=== PATIENT | female | born 1960 | race Caucasian/White ===

== ENCOUNTER → 2016-12-19 | Outpatient (CLI) | payer BC ==
[~2016-12-19] MED LIST: ATOR20TA49 PO; CITA20TA12 PO
--- NOTE | 2016-12-19 13:17 | Diagnostic Imaging Report ---
PROCEDURE: CT abdomen and pelvis without contrast. TECHNIQUE: Multiple contiguous axial images were obtained through the abdomen and pelvis without the use of intravenous contrast. INDICATION: Microhematuria. COMPARISON: None. FINDINGS: Minimal linear atelectasis or scarring in the lung bases. Benign 1.2 cm adrenal adenoma in the left adrenal gland. Mild scattered atherosclerotic calcifications. The liver, gallbladder, pancreas, spleen, right adrenal gland, kidneys, collecting systems, and appendix are negative. No free intraperitoneal air/fluid, lymphadenopathy, or evidence of bowel obstruction. Mild degenerative changes in the spine. IMPRESSION: No acute CT findings in the abdomen or pelvis. No evidence of renal stones in either kidney or ureter. Dictated by: Dictated on workstation # [id number]
== END ==
LOC: RAD 12:46
PROVIDERS: ATTEND Urology
DX: R31.29 Other microscopic hematuria (principal)
CPT/HCPCS: 74176

== ENCOUNTER → 2020-05-03 | Outpatient (CLI) | payer BC ==
--- NOTE | 2020-05-03 18:33 | Diagnostic Imaging Report ---
INDICATION: Routine screening. COMPARISON is made with prior mammogram from 10/18/2015. 2-D and 3-D bilateral screening mammography was performed with CAD. Both breasts are heterogeneously dense, limiting the sensitivity of mammography. A biopsy marker clip in the medial central left breast is again noted. Overall breast parenchymal pattern appears to be stable. No mass or malignant appearing microcalcifications are identified. Axillae are unremarkable. IMPRESSION: BI-RADS Category 2. No mammographic features suspicious for malignancy are identified. ACR BI-RADS Category 2: Benign findings. Result letter will be mailed to the patient. Note: At least 10% of breast cancer is not imaged by mammography. Dictated by: Dictated on workstation # [id number]
== END ==
LOC: RAD 13:47
PROVIDERS: ATTEND Nurse Practitioner Family
DX: Z12.31 Encounter for screening mammogram for malignant neoplasm of breast (principal); Z98.890 Other specified postprocedural states
CPT/HCPCS: 77063; 77067

== ENCOUNTER → 2021-02-08 | Outpatient (CLI) | payer BC ==
[~2021-02-08] MED LIST changes: +RT-ALBUTEROL SULF 2.5 MG/3 ML PRE-MIX VIAL INH ONE
== END ==
LOC: RT 12:26
PROVIDERS: ATTEND Nurse Practitioner Family
DX: R06.00 Dyspnea, unspecified (principal)
CPT/HCPCS: 94060; 94726; 94729

== ENCOUNTER → 2021-03-14 | Outpatient (CLI) | payer BC ==
[~2021-03-14] MED LIST changes: -RT-ALBUTEROL SULF 2.5 MG/3 ML PRE-MIX VIAL INH ONE
--- NOTE | 2021-03-14 17:23 | Diagnostic Imaging Report ---
TIME OF EXAM: 03/14/2021 5:04 p.m. REASON FOR EXAM: Lung cancer screening. 41 pack year smoking history. COMPARISON: None. TECHNIQUE: Low Dose CT helical images obtained through the chest. Sagittal and coronal reformats were obtained and reviewed. Dose reduction techniques were utilized. CTDI vol: 2.22 mGy FINDINGS: Lungs: Lung volumes are normal. No significant emphysema or fibrosis is present. There is no appreciable bronchiectasis. No pulmonary mass or consolidation is present. A nodule is seen in the left lower lobe measuring 1.1 cm. No central endoluminal airway lesion is seen. Heart and Mediastinum: Heart size is within normal limits. Small amount of coronary calcifications are present. Aortic atherosclerosis is present without aneurysm. No pericardial effusion is present. No axillary, supraclavicular, mediastinal, internal mammary, or hilar adenopathy is present by CT size criteria. Normal size and attenuation of the visualized thyroid gland. Pleura: Normal pleural spaces. No effusion or pneumothorax. No pleural nodularity or mass. Abdomen: Included views of the upper abdomen demonstrate no acute abnormality. Bones and soft tissues: Regional skeletal and soft tissue structures are age-appropriate. IMPRESSION: 1. Nodule in the left lower lobe measuring 1.1 cm. Follow-up is recommended in 3 months with low-dose chest CT. Alternatively, PET/CT may be considered to evaluate for hypermetabolic activity. 2. No thoracic lymphadenopathy. Result code: Category 4: Suspicious Follow up: 3 month LDCT Dictated by: Dictated on workstation # [id number]
== END ==
LOC: RAD 16:45
PROVIDERS: ATTEND Nurse Practitioner
DX: Z12.2 Encounter for screening for malignant neoplasm of respiratory organs (principal); R91.1 Solitary pulmonary nodule; F17.210 Nicotine dependence, cigarettes, uncomplicated
CPT/HCPCS: 71271

== ENCOUNTER → 2021-04-11 | Outpatient (CLI) | payer BC ==
--- NOTE | 2021-04-11 15:58 | Diagnostic Imaging Report ---
INDICATION: Left lower lobe pulmonary nodule. TECHNIQUE: The serum blood glucose level at the time of injection was 111 mg/dL. The patient was administered 14.1 mCi of F-18 FDG intravenously and PET imaging was performed from the top of the skull to the mid thighs. A noncontrast CT was also performed for attenuation correction and anatomic correlation. COMPARISON: No prior PET/CT studies are available for comparison. Comparison is made with the screening CT chest study from 03/14/2021. FINDINGS: There is symmetric activity throughout the brain. The soft tissues of the neck are unremarkable. The area of nodularity in the superior segment of the left lower lobe does not demonstrate FDG avidity. No pulmonary parenchymal hypermetabolism is identified. No mediastinal or hilar hypermetabolism is identified. There is physiologic activity throughout the GI and tracts of the abdomen and pelvis. No suspicious hypermetabolism is identified. IMPRESSION: Unremarkable PET/CT study. The nodular density in the left lower lobe on the screening chest CT does not demonstrate FDG avidity. Even so, continued CT chest followup is recommended to show continued stability. Dictated by: Dictated on workstation # [id number]
== END ==
LOC: RAD 11:21
PROVIDERS: ATTEND Nurse Practitioner Family
DX: J98.4 Other disorders of lung (principal); R91.1 Solitary pulmonary nodule; R93.89 Abnormal findings on diagnostic imaging of other specified body structures; F17.200 Nicotine dependence, unspecified, uncomplicated
CPT/HCPCS: 78815; A9552

== ENCOUNTER → 2021-10-05 | Outpatient (CLI) | payer BC ==
--- NOTE | 2021-10-05 16:01 | Diagnostic Imaging Report ---
INDICATION: Routine screening. COMPARISON is made with prior mammograms from 05/03/2020 and 10/18/2015. 2-D and 3-D bilateral screening mammography was performed with CAD. Both breasts are heterogeneously dense, limiting the sensitivity of mammography. A marker clip left breast is again noted. No mass or malignant appearing microcalcifications are seen. Axillae are unremarkable. IMPRESSION: BI-RADS Category 2 No mammographic features suspicious for malignancy are identified. ACR BI-RADS Category 2: Benign findings. Result letter will be mailed to the patient. Note: At least 10% of breast cancer is not imaged by mammography. Dictated by: Dictated on workstation # [id number]
== END ==
LOC: RAD 10:48
PROVIDERS: ATTEND Nurse Practitioner
DX: Z12.31 Encounter for screening mammogram for malignant neoplasm of breast (principal)
CPT/HCPCS: 77063; 77067

== ENCOUNTER → 2021-10-24 | Outpatient (CLI) | payer BC ==
--- NOTE | 2021-10-24 15:41 | Diagnostic Imaging Report ---
EXAMINATION: CT chest without contrast. TECHNIQUE: Multiple contiguous axial images were obtained through the chest without the use of intravenous contrast. All CT scans use one or more of the following dose optimizing techniques: automated exposure control, MA and/or KvP adjustment based on patient size and exam type or iterative reconstruction. HISTORY: Lung nodule. COMPARISON: 03/14/2021. FINDINGS: There is no edema or pneumonia. No pleural effusion. No pneumothorax. There is a stable 6.5 mm average diameter nodule in the left lower lobe. There is mild right middle lobe atelectasis. There is no axillary or supraclavicular lymphadenopathy. There is no mediastinal lymphadenopathy. Heart size is normal. There are severe coronary artery calcifications. No pericardial effusion. Aorta is normal in caliber. Limited views of the upper abdomen are unremarkable. There are no suspicious osseus lesions. IMPRESSION: Stable 6.5 mm average diameter left lower lobe nodule. Patient can return to annual screening. Lung RADS category two. Dictated by: Dictated on workstation # [id number]
== END ==
LOC: RAD 15:15
PROVIDERS: ATTEND Nurse Practitioner Family
DX: R91.1 Solitary pulmonary nodule (principal)
CPT/HCPCS: 71250

== ENCOUNTER 2022-09-12 06:22 | Outpatient (CLI) | payer BC ==
[~2022-09-12] VITALS: Ht 152.4 cm; Wt 74.8 kg
[2022-09-12] MEDS ORDERED: ETAN25VI SQ (15:25)
[2022-09-12] MEDS ORDERED: BUDE10.2 IH (15:25)
[2022-09-12] MEDS ORDERED: CALC600T91 PO (15:25)
[2022-09-12] MEDS ORDERED: VITA1CAP PO (15:25)
[2022-09-12] MEDS ORDERED: CETI10TA17 PO (15:25)
== END 2022-09-12 15:26 | disposition home or self-care (01) ==
LOC: PREOP 06:22
PROVIDERS: ATTEND Surgery
DX: Z01.818 Encounter for other preprocedural examination (principal)

== ENCOUNTER 2022-09-25 09:45 | Day surgery (SDC) | payer BC ==
[~2022-09-25] VITALS: Ht 152 cm; Wt 74.8 kg
[~2022-09-25 09:45] MED LIST changes: +BUDE10.2 IH; +CALC600T91 PO; +CETI10TA17 PO; +ETAN25VI SQ; +VITA1CAP PO
[2022-09-25] MEDS ORDERED: LACTATED RINGERS 1,000 ML IV STA (09:53)
[2022-09-25 10:10] VITALS: BP 123/77
[2022-09-25] MEDS ORDERED: HURRICAINE EXT TUBE (BENZOCAINE) XX PRN (10:15)
[2022-09-25] MEDS ORDERED: PROPOFOL INJECTION 50 ML IV ONE (11:23)
[2022-09-25] MEDS ORDERED: MIDAZOLAM 2 MG/2 ML (VERSED) VIAL ONE (11:24)
[2022-09-25] MEDS ORDERED: GLYCOPYRROLATE 0.2 MG/ML (ROBINUL) 2 ML VIAL ONE (11:48)
[2022-09-25] MEDS ORDERED: LACTATED RINGERS 1,000 ML IV ONE (11:58)
[2022-09-25] MEDS ORDERED: PANT40TA2 PO (12:19)
--- NOTE | 2022-09-25 12:19 | Anesthesia-General Post-Op ---
MAC Patient Condition Mental Status/LOC: Same as Preop Cardiovascular: Satisfactory Nausea/Vomiting: Absent Respiratory: Satisfactory Pain: Controlled Complications: Absent Post Op Complications Complications None Follow Up Care/Instructions Patient Instructions None needed. Anesthesiology Discharge Order Discharge Order Patient is doing well, no complaints, stable vital signs, no apparent adverse anesthesia problems. No complications reported per nursing. MILEY TEIXEIRA CRNA Sep 25, 2022 12:19
[2022-09-25 12:20] VITALS: BP 125/65
--- NOTE | 2022-09-25 12:20 | Discharge Inst-Simple/Standard ---
Discharge Inst-Standard Patient Instructions/Follow Up Plan of Care/Instructions/FU: 2 weeks Donis Activity as Tolerated: Yes Discharge Diet: Regular Diet YAMEL OTOOLE DO Sep 25, 2022 12:19
[2022-09-25 12:30] VITALS: BP 125/65
[2022-09-25 13:26] VITALS: BP 125/65
--- NOTE | 2022-09-25 20:47 | OPERATIVE REPORT ---
DATE OF SERVICE: 09/25/2022 PREOPERATIVE DIAGNOSES: Gastroesophageal reflux disease, altered bowel dysfunction. POSTOPERATIVE DIAGNOSES: Slight gastritis, colon polyps, minimal diverticulosis. PROCEDURE: EGD with biopsies, colonoscopy with hot biopsy polypectomy x6 and snare polypectomy x2. 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 ESTIMATED BLOOD LOSS: None. COMPLICATIONS: None. INDICATIONS: The patient is a 61-year-old female who has had change in bowel function and GERD symptoms. She understands risks and benefits of procedure and wishes to proceed. Consent was signed in the chart. DESCRIPTION OF PROCEDURE: The patient was taken to the endoscopy suite, placed in left lateral recumbent position. Timeout was performed. Scope was inserted in mouth, down the esophagus, stomach and into the duodenum without difficulty. No polyps, masses or ulcerations within the duodenum. Scope was slowly retracted back to stomach where it was further insufflated. Changes may be some chronic gastritis. Biopsy of the antrum and body were obtained. Scope was retroflexed noting a small sliding type hiatal hernia, no other pathology noted. Scope was returned to its normal position, slowly withdrawn to distal esophagus. Biopsy of the GE junction was obtained. Scope was slowly retracted back until completely removed, noting no other pathology. Biopsy of GE junction was obtained before were removed. Digital rectal exam was performed. No palpable polyps, masses or ulcerations. Scope was inserted in the rectum and advanced all the way to cecum with minimal difficulty. Prep was adequate with irrigation and suction. Scope was slowly retracted back. No polyps, masses or ulcerations within the cecum. In the ascending colon, 3 polyps were present, which hot biopsy polypectomies were performed. Scope was then continuously retracted back into the transverse colon where a polyp was present, which snare polypectomy was performed. Scope was then continuously retracted back descending colon where two polyps were present, which hot biopsy polypectomy was performed. Scope was continuously retracted back noting minimal amount of diverticulosis. The patient with polyp, which snare polypectomy was performed. Scope was then continuously retracted back into the rectum where another polyp was present, which hot biopsy polypectomy was performed. Scope was continuously retracted back into the rectum where it was also retroflexed noting no other pathology. Scope was returned to its normal position, slowly withdrawn until completely removed. The patient tolerated procedure well without any complications. She was taken to recovery room in stable condition. RECOMMENDATIONS: I would recommend repeat colonoscopy in 3 years. Any issues before that be seen at that time. Also depending upon pathology results. The patient with sliding hiatal hernia. We will try and get her symptoms under control. If not, would consider further testing to discuss surgical repair. Diverticulosis, would recommend high fiber diet. The patient will follow up in 2 weeks. Any problems before that be seen at that time. Job ID: [id number] DocumentID: [id number] Dictated Date: 09/25/2022 12:23:26 Ehs Specialist Date: 09/25/2022 20:46:50 Dictated By: DO PÉREZ ORELLANA
== END 2022-09-25 13:40 | disposition home or self-care (01) ==
LOC: ENDO 09:45
PROVIDERS: ATTEND Surgery
DX: D12.2 Benign neoplasm of ascending colon (principal); D12.3 Benign neoplasm of transverse colon; D12.5 Benign neoplasm of sigmoid colon; K63.5 Polyp of colon; K62.1 Rectal polyp; K57.30 Diverticulosis of large intestine without perforation or abscess without bleeding; K21.9 Gastro-esophageal reflux disease without esophagitis; K29.70 Gastritis, unspecified, without bleeding; K22.70 Barrett's esophagus without dysplasia; K31.A19 Gastric intestinal metaplasia without dysplasia, unspecified site; F17.290 Nicotine dependence, other tobacco product, uncomplicated; Z87.891 Personal history of nicotine dependence; Z79.899 Other long term (current) drug therapy; E66.9 Obesity, unspecified; Z68.32 Body mass index [BMI] 32.0-32.9, adult
CPT/HCPCS: 88305

== ENCOUNTER 2023-03-18 14:56 | Emergency (ER) | payer BC ==
[~2023-03-18] VITALS: Ht 152.4 cm; Wt 74.8 kg
[~2023-03-18 14:56] MED LIST changes: +PANT40TA2 PO
--- NOTE | 2023-03-18 15:04 | ED Chest Pain ---
General Chief Complaint: Chest Pain Stated Complaint: CHEST PRESSURE Nursing Triage Note: PT TO [facility] BY [facility] FROM [facility] WITH COMPLAINT OF CP. STATES PAIN STARTED AT WORK AND SHE WENT TO [facility]. 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 WAS GIVEN 324 ASA BY [facility] Source: patient, EMS Exam Limitations: no limitations History of Present Illness Date Seen by Provider: Mar 18, 2023 Time Seen by Provider: 14:51 Initial Comments 62-year-old female presents from the [facility] clinic where she was being evaluated for chest pain. She states this morning about 11:00 she had mid central pressure with radiation to her mid back. 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 She sat down to relax and the pain started to subside so she got up again and the pain worsened once again. It was associated with some acute shortness of breath. Symptoms lasted about an hour and subsided. They started to come back slightly when she got to the clinic. EKG at the clinic was reportedly normal. She was given 324 mg of aspirin as well. She denies any recent fevers chills recent surgeries long distance travel, unilateral lower extremity pain or swelling. She has no known cardiac history. Notably she does have rheumatoid arthritis. About a week ago she was started on hydroxychloroquine. She is also on Enbrel. All other systems reviewed and negative except documented per HPI. Voice recognition software was used to help create this chart Allergies and Home Medications Allergies Coded Allergies: Sulfa (Sulfonamide Antibiotics) (Verified Allergy, Intermediate, NAUSEA/VOMITTING, 11/03/15) Patient Home Medication List Home Medication List Reviewed: Yes Atorvastatin Calcium (Lipitor) 20 Mg Tablet, 20 MG PO DAILY, (Reported) Entered as Reported by: MAURI GRANADO on 11/03/15 1124 Budesonide/Formoterol Fumarate (Symbicort 160-4.5 Mcg Inhaler) 160 Mcg-4.5 Mcg/Actuation Hfa.aer.ad, 2 PUFF IH BID, (Reported) Entered as Reported by: AUTUMN GAONA on 09/12/22 1525 Calcium Carbonate (Calcium) 600 Mg Calcium (1500 Mg) Tablet, 600 MG PO DAILY, (Reported) Entered as Reported by: AUTUMN GAONA on 09/12/22 1525 Cetirizine HCl (Cetirizine HCl) 10 Mg Tablet, 10 MG PO DAILY, (Reported) Entered as Reported by: AUTUMN GAONA on 09/12/22 152 Etanercept (EnbreL) 25 Mg/0.5 Ml Vial, 25 MG SQ WEEK, (Reported) Entered as Reported by: AUTUMN GAONA on 09/12/22 152 Pantoprazole Sodium (Protonix) 40 Mg Tablet.dr, 40 MG PO DAILY Prescribed by: YAMEL OTOOLE on 09/25/22 1219 Vitamin B Complex (Vitamin B Complex) 1 Each Capsule, 1 EACH PO DAILY, (Reported) Entered as Reported by: AUTUMN GAONA on 09/12/22 152 Review of Systems Review of Systems Constitutional: see HPI Past Zhepjyd-Vbjoyj-Skadsv Hx Patient Social History Tobacco Use?: No Use of E-Cig and/or Vaping dev: No Substance use?: No Alcohol Use?: No Immunizations Up To Date First/Initial COVID19 Vaccinat: YES Second COVID19 Vaccination Ronaldo: YES Third COVID19 Vaccination Date: YES Seasonal Allergies Seasonal Allergies: No Past Medical History Surgeries: Yes (CYST OFF TAILBONE) Section Respiratory: Yes Asthma Cardiac: No Neurological: No Genitourinary: No Gastrointestinal: No Musculoskeletal: No Endocrine: No HEENT: No Cancer: No Psychosocial: No Integumentary: No Blood Disorders: No Physical Exam Vital Signs Vital Signs - First Documented 03/18/23 14:57 Temp 37.0 Pulse 72 Resp 19 B/P (MAP) 172/96 (121) Pulse Ox 97 O2 Delivery Room Air Capillary Refill : Less Than 3 Seconds Height, Weight, BMI Height: 5'0.00" Weight: 150lbs. oz. 68.997849uw; 32.00 BMI Method: General Appearance: No Apparent Distress, WD/WN HEENT: Normal ENT Inspection, Pharynx Normal Neck: Full Range of Motion, Normal Inspection, Non Tender, Supple Respiratory: Chest Non Tender, Lungs Clear, Normal Breath Sounds, No Accessory Muscle Use, No Respiratory Distress Cardiovascular: Regular Rate, Rhythm, No Murmur, Normal Peripheral Pulses Gastrointestinal: Normal Bowel Sounds, No Organomegaly, No Pulsatile Mass, Non Tender, Soft Extremity: Normal Capillary Refill, Normal Inspection, Non Tender, No Calf Tenderness, No Pedal Edema Neurologic/Psychiatric: Alert, Oriented x3 Skin: Normal Color, Warm/Dry Progress/Results/Core Measures Results/Orders Lab Results Laboratory Tests Test 03/18/23 15:02 Range/Units White Blood Count 9.8 4.3-11.0 10^3/uL Red Blood Count 4.54 3.80-5.11 10^6/uL Hemoglobin 13.1 11.5-16.0 g/dL Hematocrit 39 35-52 % Mean Corpuscular Volume 86 80-99 fL Mean Corpuscular Hemoglobin 29 25-34 pg Mean Corpuscular Hemoglobin Concent 34 32-36 g/dL Red Cell Distribution Width 13.0 10.0-14.5 % Platelet Count 350 130-400 10^3/uL Mean Platelet Volume 8.9 L 9.0-12.2 fL Immature Granulocyte % (Auto) 0 % Neutrophils (%) (Auto) 26 L 42-75 % Lymphocytes (%) (Auto) 60 H 12-44 % Monocytes (%) (Auto) 9 0-12 % Eosinophils (%) (Auto) 3 0-10 % Basophils (%) (Auto) 1 0-10 % Neutrophils # (Auto) 2.6 1.8-7.8 10^3/uL Lymphocytes # (Auto) 5.9 H 1.0-4.0 10^3/uL Monocytes # (Auto) 0.9 0.0-1.0 10^3/uL Eosinophils # (Auto) 0.3 0.0-0.3 10^3/uL Basophils # (Auto) 0.1 0.0-0.1 10^3/uL Immature Granulocyte # (Auto) 0.0 0.0-0.1 10^3/uL Sodium Level 138 135-145 MMOL/L Potassium Level 3.9 3.6-5.0 MMOL/L Chloride Level 106 98-107 MMOL/L Carbon Dioxide Level 23 21-32 MMOL/L Anion Gap 9 5-14 MMOL/L Blood Urea Nitrogen 14 7-18 MG/DL Creatinine 0.83 0.60-1.30 MG/DL Estimat Glomerular Filtration Rate 80 BUN/Creatinine Ratio 17 Glucose Level 88 70-105 MG/DL Calcium Level 9.1 8.5-10.1 MG/DL Corrected Calcium 9.1 8.5-10.1 MG/DL Total Bilirubin 0.4 0.1-1.0 MG/DL Aspartate Amino Transf (AST/SGOT) 14 5-34 U/L Alanine Aminotransferase (ALT/SGPT) 14 0-55 U/L Alkaline Phosphatase 56 40-136 U/L Troponin I < 0.028 <0.028 NG/ML Total Protein 7.3 6.4-8.2 GM/DL Albumin 4.0 3.2-4.5 GM/DL My Orders Orders - EILEEN DEL ROSARIO DO Cbc With Automated Diff (03/18/23 15:01) Chest 1 View, Ap/Pa Only (03/18/23 15:01) Ekg Tracing (03/18/23 15:01) Comprehensive Metabolic Panel (03/18/23 15:01) Monitor-Rhythm Ecg Trace Only (03/18/23 15:01) Ed Iv/Invasive Line Start (03/18/23 15:01) Troponin I Ngoc (03/18/23 15:01) Vital Signs/I&O 03/18/23 14:57 Temp 37.0 Pulse 72 Resp 19 B/P (MAP) 172/96 (121) Pulse Ox 97 O2 Delivery Room Air Blood Pressure Mean: 121 Comment Sinus rhythm at 65 bpm. Normal intervals. Normal axis. Mild ST depression V5 and V6.. No ectopy. Departure Communication (Admissions) Patient remained hemodynamically stable. Her chest pain has subsided while resting here. Her EKG has some mild ST depressions in V5 and V6. No other acute focal abnormalities. Differential diagnosis ACS, pericarditis, pulmonary pathology. Troponin is negative. Heart score is 4. I advised the patient to stay in the hospital for possible stress testing and observation overnight. She is very hesitant to do so. They are waiting on another friend and like to talk to her before making a decision. The patient is strongly leaning towards going home. I impressed upon her that based on the heart score she should stay in the hospital for further testing. She is mostly reluctant due to financial reasons. I have independently reviewed EKG, chest x-ray and labs After significant discussion with her friends the patient decided to leave AGAINST MEDICAL ADVICE. She is given strict return precautions and advised that she can always come back to be seen should her symptoms change in any way concerning to her. She states understanding Impression Primary Impression: Chest pain Qualified Codes: R07.9 - Chest pain, unspecified Disposition: AGAINST MEDICAL ADVICE Condition: Against Medical Advice Departure-Patient Inst. Referrals: [facility] (PCP) Primary Care Physician ANUJ TORRES APRN (Family) Primary Care Physician Patient Instructions: Chest Pain Add. Discharge Instructions: I have offered you admission and you have declined. Of course if your symptoms change in any way concerning to we are happy to see you again. Specifically need to return immediately if you have recurrence of your pain, get clammy or sweaty or have any significant shortness of breath. Follow-up with your primary doctor in the next 48 hours for further evaluation and treatment recommendation. All discharge instructions reviewed with patient and/or family. Voiced understanding. EILEEN DEL ROSARIO DO Mar 18, 2023 15:04
[2023-03-18 15:10] LABS: BASOPHILS # (AUTO) 0.1 10^3/uL (0.0-0.1); BASOPHILS % (AUTO) 1 % (0-10); EOSINOPHILS # (AUTO) 0.3 10^3/uL (0.0-0.3); EOSINOPHILS % (AUTO) 3 % (0-10); HEMATOCRIT 39 % (35-52); HEMOGLOBIN 13.1 g/dL (11.5-16.0); LYMPHOCYTES # (AUTO) 5.9 10^3/uL (1.0-4.0); LYMPHOCYTES % (AUTO) 60 % (12-44); MEAN CORPUSCULAR HEMOGLOBIN 29 pg (25-34); MEAN CORPUSCULAR HGB CONC 34 g/dL (32-36); MEAN CORPUSCULAR VOLUME 86 fL (80-99); MEAN PLATELET VOLUME 8.9 fL (9.0-12.2); MONOCYTES # (AUTO) 0.9 10^3/uL (0.0-1.0); MONOCYTES % (AUTO) 9 % (0-12); NEUTROPHILS # (AUTO) 2.6 10^3/uL (1.8-7.8); NEUTROPHILS % (AUTO) 26 % (42-75); PLATELET COUNT 350 10^3/uL (130-400); WHITE BLOOD COUNT 9.8 10^3/uL (4.3-11.0)
--- NOTE | 2023-03-18 15:20 | Diagnostic Imaging Report ---
CLINICAL INDICATION: Patient with complaints of chest pain. EXAM: Portable chest x-ray, upright view. COMPARISON: CT scan of the chest without contrast dated 10/24/2021. FINDINGS: Lungs/pleura: Lungs are clear. There is no pneumothorax. There is no pleural effusion. Mediastinum: Unremarkable. Pulmonary vasculature: Unremarkable. Heart: Prominent pericardial fat is again seen, most pronounced involving the right cardiophrenic region. There is no cardiomegaly. Bones/extrathoracic soft tissue: There are hypertrophic spurs involving the thoracic spine. IMPRESSION: There is no radiographic evidence of acute cardiopulmonary process. Dictated by: Dictated on workstation # [id number]
[2023-03-18 15:22] LABS: POTASSIUM 3.9 MMOL/L (3.6-5.0)
[2023-03-18 15:23] LABS: CALCIUM 9.1 MG/DL (8.5-10.1)
[2023-03-18 15:24] LABS: TOTAL PROTEIN 7.3 GM/DL (6.4-8.2)
[2023-03-18 15:26] LABS: BILIRUBIN,TOTAL 0.4 MG/DL (0.1-1.0)
[2023-03-18 15:28] LABS: CREATININE SERUM 0.83 MG/DL (0.60-1.30)
[2023-03-18 16:24] VITALS: BP 140/85
== END 2023-03-18 16:28 | disposition left against medical advice (07) ==
LOC: EDUNIT# 14:56 → ER 14:57
DX: R07.89 Other chest pain (principal); M06.9 Rheumatoid arthritis, unspecified; Z79.899 Other long term (current) drug therapy
CPT/HCPCS: 36415; 71045; 80053; 84484; 85025; 93005; 93041

== ENCOUNTER → 2023-04-19 | Outpatient (CLI) | payer BC | LOC: CARD 10:02 | PROVIDERS: ATTEND Internal Medicine Cardiovascular Disease | DX: R07.9 Chest pain, unspecified (principal) | CPT/HCPCS: 93306 ==

== ENCOUNTER → 2023-06-19 | Outpatient (CLI) | payer BC ==
[~2023-06-19] MED LIST changes: +CATHETER FLUSH 10 ML SYR IVP PRN; +REGADENOSON 0.4 MG/5 ML SYR (LEXISCAN) IV ONE
[2023-06-19 13:01] VITALS: BP 132/84
[2023-06-19 13:05] VITALS: BP 151/76
--- NOTE | 2023-06-19 16:15 | Cardiology Stress Test Report ---
Stress Test Report Date of Procedure/Referring: Date of Procedure: Jun 19, 2023 PCP Asmita Velazquez Aprn Admitting Physician Admitting Physician: Attending Physician: Avtar Mondragon MD Baseline Heart Rate: 65 Baseline Blood Pressure: Blood Pressure Systolic: 151 Blood Pressure Diastolic: 76 Baseline Vitals Vital Signs Date Time Temp Pulse Resp B/P (MAP) Pulse Ox O2 Delivery O2 Flow Rate FiO2 06/19/23 13:01 70 132/84 (100) Baseline EKG: Baseline EKG: NSR Summary After explaining the procedure to the patient, she signed a consent and then brought to the stress nuclear laboratory. Patient received 0.4 mg Lexiscan for stress test, ECG, heart rate and blood pressure were monitored continuously. Resting and stress dose of radio tracer were injected, imaging was acquired and reviewed in short axis, horizontal long axis and vertical long axis views. TID: 0.89 SSS: 7 SDS: 7 EF: 81 Patient was unable to exercise beyond 1 minute and 30 seconds on standard Roddy protocol, test converted to Lexiscan Patient tolerated Lexiscan well Breast attenuation affecting the quality of the images with reversible ischemia involving the mid to apical anterior lateral wall and inferior lateral wall, I think it is due to breast attenuation. Overall there is no significant ischemia or infarction on SPECT images Normal left ventricular size, ejection fraction 81% Copy Copies To 1: [facility] [place] AVTAR MONDRAGON MD Jun 19, 2023 16:15
== END ==
LOC: CARD 11:13
PROVIDERS: ATTEND Internal Medicine Cardiovascular Disease
DX: R07.9 Chest pain, unspecified (principal); R06.09 Other forms of dyspnea
CPT/HCPCS: 78452; 93017; A9502